=== PATIENT | female | born 1955 | race Caucasian/White ===

== ENCOUNTER → 2017-02-09 | Outpatient (CLI) | payer BC ==
[~2017-02-09] MED LIST: ASPEC81 PO; BLACK COHOSH; BXN500 PO; CLX20 PO; FERREX PO; LRT5 PO; LUTEIN PO; MULT-506 PO; OMEG10007 PO; ONDA8TAB6 PO; PROBIOTIC PO; SOY; SYN100 PO
--- NOTE | 2017-02-09 16:52 | MAMMOGRAPHY REPORT ---
BILATERAL DIGITAL SCREENING MAMMOGRAM WITH CAD: 02/09/2017 CLINICAL HISTORY: Routine screening. Patient has no complaints. TECHNIQUE: Current study was also evaluated with a Computer Aided Detection (CAD) system. Bilatera l CC and MLO views were obtained. COMPARISON: Comparison is made to exams dated: 12/02/2015 mammogram, 08/25/2014 mammogram, 02/07/2013 mammogram, 10/26/2011 mammogram, 10/25/2010 mammogram, and 10/22/2009 mammogram - [facility]. BREAST COMPOSITION: The tissue of both breasts is almost entirely fatty. FINDINGS: No suspicious masses, calcifications, or areas of architectural distortion are noted in e ither breast. There has been no significant interval change compared to prior exams. IMPRESSION: ACR BI-RADS CATEGORY 1: NEGATIVE There is no mammographic evidence of malignancy. A 1 year screening mammogram is recommended. The p atient will receive written notification of the results. Approximately 10% of breast cancers are not detected with mammography. A negative mammographic repor t should not delay biopsy if a clinically suggestive mass is present. Ariana Carrion M.D. /:02/09/2017 15:21:49 [employer]: Malaika SWEET(R)(M), [facility] letter sent: Normal 1/2 BI-RADS Code: ACR BI-RADS Category 1: Negative
== END | disposition home or self-care (01) ==
LOC: C.MAMM 10:23
DX: Z12.31 Encounter for screening mammogram for malignant neoplasm of breast (principal); M85.89 Other specified disorders of bone density and structure, multiple sites

== ENCOUNTER → 2017-02-09 | Outpatient (CLI) | payer BC | END | disposition home or self-care (01) | LOC: C.LAB1850 10:03 | DX: M85.80 Other specified disorders of bone density and structure, unspecified site (principal); E03.9 Hypothyroidism, unspecified ==

== ENCOUNTER → 2017-12-08 | Outpatient (CLI) | payer BC ==
[2017-12-08 16:34] LABS: BASO % 0.3 %; BASO ABS # 0.02 K/uL (0-0.2); EOS % 0.1 %; EOS ABS # 0.01 K/uL (0-0.5); HEMOGLOBIN 13.2 g/dL (12.0-16.0); IG# 0.03 K/uL (0.00-0.02); LYMPH % 36.6 %; LYMPH ABS # 2.56 K/uL (1.2-3.4); MEAN CELL VOLUME 95.6 fL (80-100); MEAN CORPUSCULAR HEMOGLOBIN 32.4 pg (25-34); MEAN CORPUSCULAR HGB CONC 33.8 g/dl (32-36); MONO % 10.6 %; MONO ABS # 0.74 K/uL (0.11-0.59); NEUT ABS # 3.64 K/uL (1.4-6.5); PLATELET COUNT 309 K/uL (130-400); RED CELL DISTRIBUTION WIDTH CV 12.8 % (11.5-14.5); RED CELL DISTRIBUTION WIDTH SD 44.9 fL (36.4-46.3)
== END | disposition home or self-care (01) ==
LOC: C.LAB1850 16:00
DX: D64.9 Anemia, unspecified (principal); R53.83 Other fatigue

== ENCOUNTER 2018-03-01 07:17 | Emergency (ER) | payer BC ==
[~2018-03-01] VITALS: Ht 157.5 cm; Wt 56.5 kg
[~2018-03-01 07:17] MED LIST changes: +ONDA-170 PO; -ONDA8TAB6 PO
[2018-03-01 07:20] VITALS: BP 113/70; PULSE 79; TEMP 36.3; O2SAT 99; Ht 157.5 cm; Wt 56.5 kg
[2018-03-01] MEDS ORDERED: AMOX875T PO (07:37)
--- NOTE | 2018-03-01 07:40 | EMERGENCY ROOM VISIT NOTE ---
History Report prepared by Juli: Aramis Gross Under the Supervision of: Dr. Chance Alfaro M.D. First contact with patient: 07:30 Chief Complaint: BITE Stated Complaint: CAT NIPPED LIP History of Present Illness The patient is a 62 year old female who presents to the Emergency Room with concerns over a cat bite that occurred this morning, just prior to arrival. The patient states that her cat just "nipped" her on the bottom lip. She does believe the lip is now swollen. The cat is up-to-date on its shots. She has had a cat bite get infected in the past. Source of History: patient Onset: Shortly [employer] Position: lip (bottom lip) Quality: other (Cat bite) Timing: other (1 bite this morning) Note: There is swelling to the lip Review of Systems See HPI for pertinent positives & negatives. A total of 6 systems reviewed and were otherwise negative. Past Medical & Surgical No significant histories noted. Family History non-contributory Social History Smoking Status: Never Smoker Drug Use: none Occupation Status: employed Current/Historical Medications Scheduled Amoxicillin & Pot Clavulanate (Augmentin 875-125 mg), 1 TAB PO BID Levothyroxine Sodium (Levothyroxine Sodium), 88 MCG PO DAILY Allergies Coded Allergies: No Known Allergies (Unverified , 03/01/18) Physical Exam Vital Signs Date Time Temp Pulse Resp B/P (MAP) Pulse Ox O2 Delivery O2 Flow Rate FiO2 03/01/18 07:20 36.3 79 20 113/70 99 Room Air Physical Exam GENERAL: Awake, alert, well-appearing, in no acute distress HENT: Normocephalic, atraumatic. Oropharynx unremarkable. The lower lip appears slightly swollen. Cannot identify any puncture roe. EYES: Normal conjunctiva. Sclera non-icteric. NEURO: Normal sensorium. No sensory or motor deficits noted. SKIN: No rash or jaundice noted. Medical Decision & Procedures Medications Administered Medications (Trade) Dose Ordered Sig/Khushboo Route Start Time Stop Time Status Last Admin Dose Admin Amoxicillin/ Clavulanate Potassium (Augmentin Tab) 875 mg ONE ONCE PO 03/01/18 07:45 03/01/18 07:46 DC 03/01/18 07:42 875 MG ED Course 07: Past medical records reviewed. The patient was evaluated in room A3. A complete history and physical examination was performed. After discussion with the patient of her bite at bedside she is in agreement with the treatment plan. The patient will be discharged home with antibiotics. Medical Decision This is a 62-year-old female who presents the emergency department complaining of Bite to the lip. The lip is swollen however I do not see any evidence of puncture roe present. I will start her on Augmentin. The patient immediately washed the wound after the bite. In addition to cat's rabies shots are up-to-date. I feel that the patient can be safely discharged home. Patient was in agreement with the treatment plan. Medication Reconcilliation Current Medication List: was personally reviewed by me Blood Pressure Screening Patient's blood pressure: Normal blood pressure Impression Primary Impression: Cat bite Scribe Attestation The scribe's documentation has been prepared under my direction and personally reviewed by me in its entirety. I confirm that the note above accurately reflects all work, treatment, procedures, and medical decision making performed by me. Departure Information Dispostion Home / Self-Care Prescriptions Amoxicillin & Pot Clavulanate (Augmentin 875-125 mg) 1 Tab Tab 1 TAB PO BID for 10 Days, #20 TAB Prov: Chance Alfaro MD 03/01/18 Referrals Derrick MontgomeryJr,D.O. (PCP) Forms HOME CARE DOCUMENTATION FORM, IMPORTANT VISIT INFORMATION Patient Instructions My [facility] Additional Instructions isaías probiotics while taking Augmentin You have been examined and treated today on an emergency basis only. This is not a substitute for, or an effort to provide, complete comprehensive medical care. It is impossible to recognize and treat all injuries or illnesses in a single emergency department visit. It is therefore important that you follow up closely with Dr Montgomery. Call as soon as possible for an appointment. Thank you for your time and consideration. I look forward to speaking with you again soon. Please don't hesitate to call us if you have any questions. Problem Qualifiers Primary Impression: Cat bite Encounter type: initial encounter Qualified Codes: W55.01XA - Bitten by cat , initial encounter
[2018-03-01] MEDS ORDERED: LEVO88TA3 PO (07:42)
[2018-03-01] MEDS ORDERED: AMOXICILLIN/CLAVULANATE TAB 875 MG TAB PO ONE (07:45)
== END 2018-03-01 07:52 | disposition home or self-care (01) ==
LOC: C.EDB 07:18 → C.EDA 07:52
DX: S00.571A Other superficial bite of lip, initial encounter (principal); W55.01XA Bitten by cat, initial encounter; Y92.019 Unspecified place in single-family (private) house as the place of occurrence of the external cause